=== PATIENT | female | born 1985 | race Caucasian/White ===

== ENCOUNTER 2018-09-20 17:06 | Emergency (ER) | payer OTHER, SELFPAY ==
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
[2018-09-20 18:09] LABS: #Eosinphils 0.1 thou/uL (0.0-0.7); #Lymphocytes 2.4 thou/uL (1.20-3.40); #Monocytes 0.6 thou/uL (0.11-0.59); #Neutrophils 4.1 thou/uL (1.40-6.50); %Basophils 0.1 % (0.0-1.0); %Eosinophils 1.2 % (0.0-10.0); %Monocytes 8.5 % (0.0-10.0); %Neutrophils 57.1 % (42.0-75.0); Hemoglobin 12.8 g/dL (12.0-16.0); Mean Corpuscular HGB CONC 33.2 g/dL (32.0-36.0); Mean Corpuscular Hemoglobin 31.9 pg (27.0-31.0); Mean Platelet Volume 7.9 fL (7.4-10.4); Platelet Count 307 thou/uL (130-400); RBC Distribution Width 11.4 % (11.5-14.5); Red Blood Cell (RBC) Count 4.02 mill/uL (4.20-5.40); White Blood Cell (WBC) Count 7.1 thou/uL (4.8-10.8)
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
[2018-09-20] MEDS ORDERED: Ondansetron PF 4 MG/2 ML Vial ONE (18:14)
[2018-09-20] MEDS ORDERED: Ketorolac Tromethamine 30 MG/ML VIAL ONE (18:14)
[2018-09-20 18:17] LABS: BHCG - Serum Negative (NEGATIVE); Pregs Control Background? CLEAR/WHITE (CLR/WHITE); Pregs Control Bar Appear? YES (CONTROL BAR)
[2018-09-20 18:30] LABS: ALT (SGPT) 7 U/L (8-55); AST (SGOT) 12 U/L (5-34); Albumin 4.1 g/dL (3.5-5.0); Alkaline Phosphatase 66 U/L (40-150); Anion Gap 13 mmol/L (10-20); BUN (Urea Nitrogen) 16 mg/dL (7.0-18.7); Bilirubin, Total 0.5 mg/dL (0.2-1.2); Calc. Creatinine Clearance 0 mL/min (70-130); Calcium 9.3 mg/dL (7.8-10.44); Carbon Dioxide 26 mmol/L (22-29); Chloride 104 mmol/L (98-107); Estimated GFR-MDRD 86; Globulin 3.4 g/dL (2.4-3.5); Glucose 77 mg/dL (70-105); Lipase 10 U/L (8-78); Potassium 4.1 mmol/L (3.5-5.1); Protein, Total 7.5 g/dL (6.0-8.3); Sodium 139 mmol/L (136-145)
== END 2018-09-20 18:40 | disposition home or self-care (01) ==
LOC: ERS 17:06
DX: S16.1XXA Strain of muscle, fascia and tendon at neck level, initial encounter (principal); S39.012A Strain of muscle, fascia and tendon of lower back, initial encounter; F41.9 Anxiety disorder, unspecified; F17.210 Nicotine dependence, cigarettes, uncomplicated; V43.52XA Car driver injured in collision with other type car in traffic accident, initial encounter
CPT/HCPCS: 36415; 71260; 72125; 74177; 80053; 83690; 84703; 85025; 96374; 96375; J1885; J2405

== ENCOUNTER 2019-09-27 01:30 | Inpatient (IN) | payer BC, OTHER, SELFPAY ==
[2019-09-27] MEDS ORDERED: Ondansetron PF 4 MG/2 ML Vial ONE ×2 (02:12→03:39)
[2019-09-27 02:34] LABS: #Monocytes 0.7 thou/uL (0.11-0.59); #Neutrophils 10.4 thou/uL (1.40-6.50); %Basophils 0.2 % (0.0-1.0); %Eosinophils 0.2 % (0.0-10.0); %Lymphocytes 8.2 % (21.0-51.0); %Monocytes 5.8 % (0.0-10.0); %Neutrophils 85.8 % (42.0-75.0); Hemoglobin 12.5 g/dL (12.0-16.0); Mean Corpuscular HGB CONC 31.8 g/dL (32.0-36.0); Mean Corpuscular Volume 97.2 fL (78.0-98.0); Mean Platelet Volume 7.3 fL (7.4-10.4); Platelet Count 313 thou/uL (130-400); RBC Distribution Width 11.3 % (11.5-14.5); Red Blood Cell (RBC) Count 4.05 mill/uL (4.20-5.40); White Blood Cell (WBC) Count 12.1 thou/uL (4.8-10.8)
[2019-09-27 02:41] LABS: BHCG - Serum Negative (NEGATIVE); Pregs Control Background? CLEAR/WHITE (CLR/WHITE); Pregs Control Bar Appear? YES (CONTROL BAR)
[2019-09-27 02:45] LABS: Bilirubin Negative (Negative); Blood, Urine 1+ (Negative); Clarity Turbid (Clear); Glucose, Urine (Dipstick) Normal (Negative); Leukocyte 250 Leu/uL (Negative); Nitrite Negative (Negative); Protein, Urine (Dipstick) 200 mg/dL (Neg-Trace); Urobilinogen Normal mg/dL (Less than 2); WBC/HPF Greater than 50 HPF (0-3)
[2019-09-27 02:47] LABS: Bacteria/HPF 1+ HPF (None Seen)
[2019-09-27 02:50] LABS: ALT (SGPT) 8 U/L (8-55); AST (SGOT) 16 U/L (5-34); Albumin 4.3 g/dL (3.5-5.0); Alkaline Phosphatase 71 U/L (40-110); Anion Gap 15 mmol/L (10-20); BUN (Urea Nitrogen) 23 mg/dL (7.0-18.7); Bilirubin, Total 0.4 mg/dL (0.2-1.2); Calc. Creatinine Clearance 0 mL/min (70-130); Calcium 9.5 mg/dL (7.8-10.44); Carbon Dioxide 26 mmol/L (22-29); Chloride 104 mmol/L (98-107); Estimated GFR-MDRD 25; Globulin 3.3 g/dL (2.4-3.5); Glucose 115 mg/dL (70-105); Lipase 8 U/L (8-78); Potassium 4.1 mmol/L (3.5-5.1); Protein, Total 7.6 g/dL (6.0-8.3); Sodium 141 mmol/L (136-145)
[2019-09-27] MEDS ORDERED: cefTRIAXone\\ROCEPHIN 2 GM in Sodium Chloride 0.9% 100 ML IVPB SCH (03:00)
[2019-09-27] MEDS ORDERED: cefTRIAXone\\ROCEPHIN 1 GM VIAL ONE (03:01)
[2019-09-27 04:36] VITALS: BMI 28.1
[2019-09-27] MEDS ORDERED: Ondansetron ODT 4 MG TAB SL PRN (04:55)
[2019-09-27] MEDS ORDERED: Ondansetron PF 4 MG/2 ML Vial IVP PRN ×2 (04:55→05:14)
[2019-09-27] MEDS ORDERED: Senokot S 8.6-50 MG TAB PO PRN (05:14)
[2019-09-27] MEDS ORDERED: Fioricet 325/50/40 mg Tablet PO PRN (05:36)
[2019-09-27] MEDS: Sodium Chloride 0.9% 1,000 ML IV SCH ×2 (05:58→15:52)
--- NOTE | 2019-09-27 06:20 | HP ---
CHIEF COMPLAINT: Nausea and vomiting. HISTORY OF PRESENT ILLNESS: The patient is a very pleasant 33-year-old female with a medical history of anxiety, who comes into the hospital with complaints of nausea and vomiting going on day. The patient stated that she woke up on Friday evening around 7:30, started having some lower back pain. She took some ibuprofen and took a bath and went to run an errand. While she was coming back home, got very nauseated and threw up a few times. After that, every few hours, she had 1 or 2 bouts of emesis. At this time, she drove herself into the ER for further evaluation. The patient denies any fevers or chills. She stated that she noticed her urine was cloudy and had an odor. However, she denied any dysuria. She stated that she noticed her urine being cloudy and odorous, it has not even been 24 hours. She states that she gets UTIs about twice a year, but nothing like this. The patient also has been taking some ibuprofen post wisdom tooth removal. She also noticed that since she has had her teeth pulled, she continues to have this headache that she never had before. PAST MEDICAL HISTORY: She has a history of anxiety. PAST SURGICAL HISTORY: She has had a , tubal ligation. She has had recently her wisdom teeth removed on the of this of 2019. She has also had fecal disimpaction after having her son. MEDICATIONS: She takes buspirone as needed. ALLERGIES: SHE IS ALLERGIC TO AZITHROMYCIN, SHE GETS UTI AND YEAST INFECTION. FAMILY HISTORY: Mother has nasopharyngeal carcinoma, she is currently in remission. Father has hypertension, hyperlipidemia. REVIEW OF SYSTEMS: All negative except the ones mentioned above in the HPI. LABORATORY DATA: WBCs of 12.1, hemoglobin of 12.5, hematocrit of 39.3, platelets of 313. Chemistry; sodium of 141, potassium of 4.1, BUN of 23, creatinine of 2.23. Her test is negative. Her lipase was 8. Her LFTs were normal. Urine indicated turbid with 250 leukocytes, she did have some squamous epithelial cells and greater than [address] scan was ordered and is pending. PHYSICAL EXAMINATION: VITAL SIGNS: Temperature 98.1, pulse 63, blood pressure 124/85, respirations 20, and oxygen saturation 100% on room air. GENERAL: She is awake, alert, and oriented x3. Does not appear in distress. CV: S1 and S2 present. No murmurs, rubs, or gallops. LUNGS: Clear to auscultation. No rhonchi or wheezes noted. ABDOMEN: Soft, mild pain upon palpation around her epigastric area and also on her right lower quadrant and suprapubic area. EXTREMITIES: No edema. Pedal pulses are present x2. NEUROVASCULAR: No focal deficits noted. SKIN: No cuts or lesions or bruises noted. ASSESSMENT AND PLAN: The patient is a very pleasant 33-year-old female, who presents to the hospital with complaints of nausea, vomiting, and abdominal pain. 1. Urinary tract infection. She does not have costovertebral tenderness. She states her pain is more lower, lower back pain. CT of abdomen and pelvis is pending. However, upon my review, did not see any stranding. However, we will start her on some Rocephin for now, give her some IV hydration, send her urine for culture, and continue to monitor. 2. Acute kidney injury. She has no issues with her creatinine. Her last creatinine back in 2019 was normal at 0.78. She has been taking a significant amount of NSAIDs. We will stop the NSAIDs. We will start her on some hydration and see if her creatinine improves. I do not see any obstruction either on the CAT scan. She states that she has had kidney stones in the past; however, they have never caused her to have any issues. 3. Mild leukocytosis. Again, this could be from her urinary tract infection. 4. Deep venous thrombosis prophylaxis. We will put the patient on some SCDs and subcu Lovenox. Job ID: [id number]
[2019-09-27] MEDS ORDERED: Enoxaparin Sodium 40 MG/0.4 ML SYRINGE SC SCH (09:00)
[2019-09-27] MEDS: Famotidine/PF 20 mg/2ml Vial SLOW IVP SCH (09:00)
--- NOTE | 2019-09-27 09:41 | CT ---
PRELIMINARY REPORT/[facility]/EMERGENCY AFTER HOURS PROCEDURE EXAM: CT Abdomen and Pelvis Without Intravenous Contrast CLINICAL HISTORY: PT REPORTS N/V AND A HEADACHE ONSET 2129. REPORTS 6 EPISODES OF VOMITING, BILATERAL FLANK PAIN TECHNIQUE: Axial computed tomography images of the abdomen and pelvis without intravenous contrast. CONTRAST: None. COMPARISON: CT\SR - CT ABDOMEN PELVIS W/CONTRAST - 06/22/2011 10:37 PM WIRE STRANDER FINDINGS: LUNG BASES: No basilar airspace consolidation or pleural effusion. LIVER: Unremarkable. GALLBLADDER AND BILE DUCTS: Unremarkable. No calcified stone. No ductal dilation. PANCREAS: Unremarkable. SPLEEN: Unremarkable. ADRENAL GLANDS: Unremarkable. KIDNEYS, URETERS, AND BLADDER: 3 mm nonobstructing stone lower pole of the left kidney. No obstructin g renal stone. No hydronephrosis. STOMACH AND BOWEL: The rectum is markedly distended with wall measuring up to 9 cm in transverse dime nsion with mural thickening. Large amount of stool within the sigmoid colon. The remainder of the col on is not significantly distended. APPENDIX: Clips adjacent to the cecum may represent a prior appendectomy. PERITONEUM: No free fluid. No free air. LYMPH NODES: No lymphadenopathy. REPRODUCTIVE: Uterus is deviated to the right by the distended sigmoid colon. VASCULATURE: No aortic aneurysm. ABDOMINAL WALL AND SOFT TISSUES: Small fat-containing umbilical hernia. BONES: No fracture or suspicious osseous abnormality. IMPRESSION: The rectum is markedly distended with wall measuring up to 9 cm in transverse dimension with mural th ickening. Large amount of stool within the sigmoid colon. The remainder of the colon is not signifi cantly distended. Findings suggest fecal impaction. Thickening of the rectal wall may represent pro ctitis, although there is no significant adjacent stranding within the fat. ELECTRONICALLY SIGNED BY: Sania Kline MD Sep 27, 2019 4:31:39 AM CDT FINAL REPORT EMERGENT AFTER HOURS CT ABDOMEN AND PELVIS WITHOUT CONTRAST: DATE: 09/27/2019. PROVIDED CLINICAL HISTORY: Bilateral flank pain and vomiting. FINDINGS: Comparison is made with the examination dated 09/20/2018. The visualized lung bases are free of significant opacity. The left kidney demonstrates a 2-3 mm nonobstructing inferior pole calculus. No additional urinary t ract calculi are evident. There is a suggestion of subtle bilateral perinephric fat stranding. The urinary bladder wall appears thickened and there is fat stranding about the urinary bladder. Several foci of bladder gas are demonstrated. There is no hydronephrosis or additional urinary tract calcul us apparent. The solid abdominal organs are suboptimally evaluated in the absence of IV contrast material but demo nstrate an otherwise unremarkable unenhanced CT appearance. There is no bowel dilatation from additional inflammatory fat stranding, free fluid, or free air appa rent. There is conspicuous rectal fecal retention with stranding of the perirectal fat. The osseous structures demonstrate no concerning lytic or blastic lesions. IMPRESSION: 1. Urinary bladder wall thickening with surrounding fat stranding suggests cystitis. Foci of bladde r gas may be related to catheterization versus gas-forming organism. 2. Possible subtle bilateral perinephric fat stranding. Pyelonephritis is not excluded. 3. A 3 mm nonobstructing inferior pole left renal calculus. 4. Conspicuous rectal fecal retention and findings suggesting possible stercoral proctitis. This report is in disagreement with the preliminary interpretation. POS: [facility]
--- NOTE | 2019-09-27 10:24 | PDOC.HOSPP ---
- Subjective Encounter Date: 09/27/19 Encounter Time: 07:00 Subjective: no abd pain or nausea has loss of appetite, wants bland diet - Objective Vital Signs & Weight: Vital Signs (12 hours) Temp Pulse Resp BP BP Pulse Ox 09/27/19 07:26 98.0 F 57 L 18 108/71 99 09/27/19 04:00 98.1 F 63 20 124/85 124/85 100 Weight Weight 180 lb Result Diagrams: 09/27/19 02:15 09/27/19 02:15 Hospitalist ROS - Medication Medications: Active Medications Generic Name Dose Route Start Last Admin Trade Name Freq PRN Reason Stop Dose Admin Enoxaparin Sodium 40 mg 09/27/19 09:00 09/27/19 09:00 Lovenox SC 40 mg 0900 DEBI Administration Famotidine 20 mg 09/27/19 09:00 09/27/19 09:00 Pepcid SLOW IVP 20 mg 0900 DEBI Administration Sodium Chloride 1,000 mls @ 100 mls/hr 09/27/19 05:30 09/27/19 05:58 Normal Saline 0.9% IV 1,000 mls .Q10H DEBI Administration Senna/Docusate Sodium 2 tab 09/27/19 05:14 09/27/19 05:59 Senokot S PO 2 tab BID PRN Administration Constipation - Exam General Appearance: awake alert Eye: PERRL, anicteric sclera ENT: no oropharyngeal lesions, dry oral mucosa Neck: supple, no JVD Heart: RRR, no murmur Respiratory: no wheezes, no rales, no ronchi Gastrointestinal: soft, non-tender, non-distended, normal bowel sounds, no guarding, no rigidity Extremities: no cyanosis, no edema Neurological: cranial nerve grossly intact, no focal deficits Psychiatric: normal affect, A&O x 3 Hosp A/P (1) Pyelonephritis Code(s): N12 - TUBULO-INTERSTITIAL NEPHRITIS, NOT SPCF ACUTE OR CHRONIC Status: Acute (2) Severe dehydration Code(s): E86.0 - DEHYDRATION Status: Acute (3) NAFISA (acute kidney injury) Code(s): N17.9 - ACUTE KIDNEY FAILURE, UNSPECIFIED Status: Acute (4) Intractable nausea and vomiting Code(s): R11.2 - NAUSEA WITH VOMITING, UNSPECIFIED Status: Acute (5) Anxiety disorder Code(s): F41.9 - ANXIETY DISORDER, UNSPECIFIED Status: Chronic Qualifiers: Anxiety disorder type: generalized anxiety disorder Qualified Code(s): F41.1 - Generalized anxiety disorder - Plan is on ceftriaxone, iv hydration labs in am to ambulate as tolerated bowel regimen for constipation will switch to inpatient status in am if she does not respond well to current treatment.
[2019-09-27] MEDS ORDERED: Bisacodyl 10 MG SUPP PR PRN (10:26)
[2019-09-27] MEDS ORDERED: Promethazine HCl 25 MG/ML VIAL IM/IV PRN (13:43)
[2019-09-27] MEDS ORDERED: Promethazine HCl 25 MG in Sodium Chloride 0.9% 50 ML IVPB SCH (14:30)
[2019-09-27] MEDS: Acetaminophen 325 MG TAB PO PRN (15:55)
[2019-09-27] MEDS: Senokot S 8.6-50 MG TAB PO SCH (19:50)
[2019-09-28] MEDS: cefTRIAXone\\ROCEPHIN 2 GM in Sodium Chloride 0.9% 100 ML IVPB SCH (04:00)
[2019-09-28 05:27] LABS: #Lymphocytes 1.7 thou/uL (1.20-3.40); #Monocytes 0.9 thou/uL (0.11-0.59); %Basophils 0.1 % (0.0-1.0); %Eosinophils 0.3 % (0.0-10.0); %Lymphocytes 19.4 % (21.0-51.0); %Monocytes 10.6 % (0.0-10.0); %Neutrophils 69.6 % (42.0-75.0); Hemoglobin 10.5 g/dL (12.0-16.0); Mean Corpuscular HGB CONC 32.2 g/dL (32.0-36.0); Mean Corpuscular Hemoglobin 31.1 pg (27.0-31.0); Mean Corpuscular Volume 96.5 fL (78.0-98.0); Mean Platelet Volume 7.4 fL (7.4-10.4); Platelet Count 209 thou/uL (130-400); RBC Distribution Width 11.4 % (11.5-14.5); Red Blood Cell (RBC) Count 3.38 mill/uL (4.20-5.40); White Blood Cell (WBC) Count 8.6 thou/uL (4.8-10.8)
[2019-09-28 05:58] LABS: Anion Gap 14 mmol/L (10-20); BUN (Urea Nitrogen) 26 mg/dL (7.0-18.7); Calc. Creatinine Clearance 29 mL/min (70-130); Calcium 8.1 mg/dL (7.8-10.44); Carbon Dioxide 21 mmol/L (22-29); Chloride 109 mmol/L (98-107); Estimated GFR-MDRD 15; Glucose 83 mg/dL (70-105); Sodium 140 mmol/L (136-145)
--- NOTE | 2019-09-28 08:14 | RAD ---
PORTABLE CHEST: DATE: 09/28/2019. PROVIDED CLINICAL HISTORY: Abdominal pain. FINDINGS: Comparison 05/22/2010. Cardiac and mediastinal silhouette is within normal limits. No focal consoli dation, pleural fluid, or pneumothorax apparent. IMPRESSION: No evidence for an acute cardiopulmonary process. POS: [facility]
[2019-09-28] MEDS: Polyethylene Glycol 3350 17 GM Packet PO SCH (09:26)
[2019-09-28] MEDS: Famotidine/PF 20 mg/2ml Vial SLOW IVP SCH (09:27)
[2019-09-28] MEDS: Dextrose 5% in Water 1,000 ML IV SCH ×3 (09:30→23:10)
[2019-09-28] MEDS: Senokot S 8.6-50 MG TAB PO SCH ×2 (09:32→20:13)
--- NOTE | 2019-09-28 11:44 | PDOC.HOSPP ---
- Subjective Encounter Date: 09/28/19 Encounter Time: 09:20 Subjective: no cough or sob no abd pain or nausea now ate her breakfast this am says she is feeling better from last night - Objective Vital Signs & Weight: Vital Signs (12 hours) Temp Pulse Resp BP Pulse Ox 09/28/19 10:57 99.2 F 50 L 14 109/71 96 09/28/19 08:24 97 09/28/19 04:00 98.9 F 49 L 20 116/77 95 Weight Admit Weight 180 lb Weight 180 lb I&O: 09/27/19 09/28/19 09/29/19 06:59 06:59 06:59 Intake Total 1198 Balance 1198 Result Diagrams: 09/28/19 05:08 09/28/19 05:08 Hospitalist ROS - Medication Medications: Active Medications Generic Name Dose Route Start Last Admin Trade Name Freq PRN Reason Stop Dose Admin Acetaminophen 650 mg 09/27/19 05:14 09/27/19 15:55 Tylenol PO 650 mg Q4H PRN Administration Headache/Fever/Mild Pain (1-3) Famotidine 20 mg 09/27/19 09:00 09/28/19 09:27 Pepcid SLOW IVP 20 mg 0900 DEBI Administration Ceftriaxone Sodium 2 gm/ 100 mls @ 200 mls/hr 09/28/19 03:00 09/28/19 04:00 Sodium Chloride IVPB 100 mls Q24HR DEBI Administration Dextrose/Water 1,000 mls @ 100 mls/hr 09/28/19 07:15 09/28/19 09:30 D5w IV 1,000 mls .Q10H DEBI Administration Ondansetron HCl 4 mg 09/27/19 05:14 09/27/19 10:53 Zofran IVP 4 mg Q6H PRN Administration Nausea/Vomiting Polyethylene Glycol 17 gm 09/28/19 09:00 09/28/19 09:26 Miralax PO 17 gm DAILY DEBI Administration Promethazine HCl 25 mg 09/27/19 13:43 09/27/19 19:51 Phenergan IM/IV 25 mg Q6H PRN Administration Nausea/Vomiting Senna/Docusate Sodium 2 tab 09/27/19 05:14 09/27/19 05:59 Senokot S PO 2 tab BID PRN Administration Constipation Senna/Docusate Sodium 1 tab 09/27/19 21:00 09/28/19 09:32 Senokot S PO Not Given BID DEBI Sodium Chloride 10 ml 09/28/19 09:00 09/28/19 09:33 Flush - Normal Saline IVF Not Given Q12HR DEBI - Exam General Appearance: awake alert Eye: PERRL, anicteric sclera ENT: no oropharyngeal lesions, moist mucosa Neck: supple, no JVD Heart: RRR, no murmur Respiratory: no wheezes, no rales Gastrointestinal: soft, non-tender, non-distended, normal bowel sounds Extremities: no cyanosis, no edema Neurological: cranial nerve grossly intact, no focal deficits Psychiatric: normal affect, A&O x 3 Hosp A/P (1) Pyelonephritis Code(s): N12 - TUBULO-INTERSTITIAL NEPHRITIS, NOT SPCF ACUTE OR CHRONIC Status: Acute (2) Severe dehydration Code(s): E86.0 - DEHYDRATION Status: Acute (3) NAFISA (acute kidney injury) Code(s): N17.9 - ACUTE KIDNEY FAILURE, UNSPECIFIED Status: Acute (4) Intractable nausea and vomiting Code(s): R11.2 - NAUSEA WITH VOMITING, UNSPECIFIED Status: Resolved (5) Anxiety disorder Code(s): F41.9 - ANXIETY DISORDER, UNSPECIFIED Status: Chronic Qualifiers: Anxiety disorder type: generalized anxiety disorder Qualified Code(s): F41.1 - Generalized anxiety disorder - Plan is on ceftriaxone, iv hydration labs in am to ambulate as tolerated bowel regimen for constipation will switch to inpatient status as her creatinine has gotten worse, likely has [facility] nephrology consultation
--- NOTE | 2019-09-28 18:16 | CON ---
DATE OF CONSULTATION: CONSULTING PHYSICIAN: Constantin Patel MD REQUESTING PHYSICIAN: Amarilis Alberts MD REASON FOR CONSULTATION: Acute kidney injury. IMPRESSION: 1. Acute kidney injury, this is likely in the context of cytokine-mediated injury compounded by prerenal due to nausea and vomiting. 2. Obstructive uropathy ruled out as per imaging studies. PLAN: 1. IV rehydration. 2. Antibiotics, especially narrow down basal de-sensitivity. 3. Renally dose all medications. 4. Hopefully the renal function will improve rapidly. If this does not occur, we will begin to look into some other potential inflammatory damage of the kidney. HISTORY OF PRESENT ILLNESS: History is that of a 33-year-old female patient, who presented here with nausea and vomiting with cloudy urine with preliminary studies suggestive of urinary tract infection, activities by imaging studies of perinephric stranding and evidence of cystitis and urinalysis. The patient is currently on antibiotics. Baseline creatinine of 0.78 as of about a year ago. On presentation here noted with 2.23 and has progressively gone up to 3.51 caused the need for renal consultation. PAST MEDICAL HISTORY: Significant for anxiety and a past history of urinary tract infection. MEDICATIONS: As documented on [facility]. ALLERGIES: TO ZITHROMAX. FAMILY HISTORY: No family history of kidney disease. SOCIAL HISTORY: Denies alcohol, occasional tobacco use. REVIEW OF SYSTEMS: As documented in the body of the history. All other systems were reviewed and found not to be significantly related to present illness. PHYSICAL EXAMINATION: GENERAL: The patient was found not to be in any obvious distress. VITAL SIGNS: Noted with the following vital signs, afebrile, temperature 98.7, pulse 50, respiratory rate of 16, and O2 saturation of 96% with blood pressure 113/74. HEENT: Unremarkable. CARDIOVASCULAR SYSTEM: First and second heart sounds were heard. RESPIRATORY SYSTEM: Clear to auscultation. DIGESTIVE SYSTEM: Revealed a benign abdomen with positive bowel sounds. EXTREMITIES: No peripheral edema. SKIN: No new gross rash. LYMPHATICS: No peripheral lymphadenopathy. SUMMARY: A 33-year-old female patient, who presented here with evidence of urinary tract infection, now experiencing worsening kidney injury in the context of possible cytokine-mediated injury compounded by prerenal azotemia. Thank you for this consultation. We will follow with you. Job ID: [id number]
[2019-09-28] MEDS: Enoxaparin Sodium 30 MG/0.3 ML SYRINGE SC SCH (20:15)
[2019-09-29] MEDS: cefTRIAXone\\ROCEPHIN 2 GM in Sodium Chloride 0.9% 100 ML IVPB SCH (02:53)
[2019-09-29] MEDS: Sodium Chloride 0.9% 1,000 ML IV SCH (07:20)
[2019-09-29 07:44] LABS: #Eosinphils 0.1 thou/uL (0.0-0.7); #Lymphocytes 1.6 thou/uL (1.20-3.40); #Monocytes 0.7 thou/uL (0.11-0.59); #Neutrophils 4.5 thou/uL (1.40-6.50); %Basophils 0.3 % (0.0-1.0); %Eosinophils 0.8 % (0.0-10.0); %Lymphocytes 23.3 % (21.0-51.0); %Monocytes 10.2 % (0.0-10.0); %Neutrophils 65.4 % (42.0-75.0); Hemoglobin 10.7 g/dL (12.0-16.0); Mean Corpuscular HGB CONC 32.4 g/dL (32.0-36.0); Mean Corpuscular Hemoglobin 31.5 pg (27.0-31.0); Mean Corpuscular Volume 97.2 fL (78.0-98.0); Mean Platelet Volume 8.1 fL (7.4-10.4); Platelet Count 215 thou/uL (130-400); RBC Distribution Width 11.4 % (11.5-14.5); Red Blood Cell (RBC) Count 3.41 mill/uL (4.20-5.40); White Blood Cell (WBC) Count 6.9 thou/uL (4.8-10.8)
[2019-09-29 08:05] LABS: Anion Gap 13 mmol/L (10-20); BUN (Urea Nitrogen) 20 mg/dL (7.0-18.7); BUN/Creatinine Ratio 8.73; Calc. Creatinine Clearance 45 mL/min (70-130); Calcium 8.2 mg/dL (7.8-10.44); Carbon Dioxide 22 mmol/L (22-29); Chloride 107 mmol/L (98-107); Estimated GFR-MDRD 25; Glucose 99 mg/dL (70-105); Phosphorus 3.9 mg/dL (2.3-4.7); Potassium 3.7 mmol/L (3.5-5.1); Sodium 138 mmol/L (136-145)
[2019-09-29] MEDS: Famotidine/PF 20 mg/2ml Vial SLOW IVP SCH (08:15)
[2019-09-29] MEDS: Polyethylene Glycol 3350 17 GM Packet PO SCH (08:15)
[2019-09-29] MEDS: Senokot S 8.6-50 MG TAB PO SCH ×2 (08:15→21:45)
[2019-09-29] MEDS: Dextrose 5% in Water 1,000 ML IV SCH ×2 (12:20→21:45)
--- NOTE | 2019-09-29 12:33 | PDOC.HOSPP ---
- Subjective Encounter Date: 09/29/19 Encounter Time: 08:00 Subjective: no abd pain or nausea feels better is tolerating oral diet - Objective Vital Signs & Weight: Vital Signs (12 hours) Temp Pulse Resp BP BP Pulse Ox 09/29/19 08:00 98.4 F 61 16 96/62 98 09/29/19 04:00 98.6 F 66 20 127/74 98 Weight Admit Weight 180 lb Weight 180 lb I&O: 09/28/19 09/29/19 09/30/19 06:59 06:59 06:59 Intake Total 1198 Balance 1198 Result Diagrams: 09/29/19 07:20 09/29/19 07:21 Hospitalist ROS - Medication Medications: Active Medications Generic Name Dose Route Start Last Admin Trade Name Freq PRN Reason Stop Dose Admin Acetaminophen 650 mg 09/27/19 05:14 09/27/19 15:55 Tylenol PO 650 mg Q4H PRN Administration Headache/Fever/Mild Pain (1-3) Enoxaparin Sodium 30 mg 09/28/19 21:00 09/28/19 20:15 Lovenox SC Not Given 2100 DEBI Famotidine 20 mg 09/27/19 09:00 09/29/19 08:15 Pepcid SLOW IVP 20 mg 0900 DEBI Administration Ceftriaxone Sodium 2 gm/ 100 mls @ 200 mls/hr 09/28/19 03:00 09/29/19 02:53 Sodium Chloride IVPB 100 mls Q24HR DEBI Administration Dextrose/Water 1,000 mls @ 100 mls/hr 09/28/19 07:15 09/28/19 23:10 D5w IV 1,000 mls .Q10H DEBI Administration Ondansetron HCl 4 mg 09/27/19 05:14 09/27/19 10:53 Zofran IVP 4 mg Q6H PRN Administration Nausea/Vomiting Polyethylene Glycol 17 gm 09/28/19 09:00 09/29/19 08:15 Miralax PO 17 gm DAILY DEBI Administration Promethazine HCl 25 mg 09/27/19 13:43 09/27/19 19:51 Phenergan IM/IV 25 mg Q6H PRN Administration Nausea/Vomiting Senna/Docusate Sodium 2 tab 09/27/19 05:14 09/27/19 05:59 Senokot S PO 2 tab BID PRN Administration Constipation Senna/Docusate Sodium 1 tab 09/27/19 21:00 09/29/19 08:15 Senokot S PO Not Given BID DEBI Sodium Chloride 10 ml 09/28/19 09:00 09/29/19 08:15 Flush - Normal Saline IVF Not Given Q12HR DEBI - Exam General Appearance: awake alert Eye: PERRL, anicteric sclera ENT: no oropharyngeal lesions, moist mucosa Neck: supple, no JVD Heart: RRR, no murmur Respiratory: no wheezes, no rales Gastrointestinal: soft, non-tender, non-distended, normal bowel sounds Extremities: no cyanosis, no edema Neurological: cranial nerve grossly intact, no focal deficits Psychiatric: normal affect, A&O x 3 Hosp A/P (1) Pyelonephritis Code(s): N12 - TUBULO-INTERSTITIAL NEPHRITIS, NOT SPCF ACUTE OR CHRONIC Status: Acute (2) Severe dehydration Code(s): E86.0 - DEHYDRATION Status: Resolved (3) NAFISA (acute kidney injury) Code(s): N17.9 - ACUTE KIDNEY FAILURE, UNSPECIFIED Status: Acute (4) Intractable nausea and vomiting Code(s): R11.2 - NAUSEA WITH VOMITING, UNSPECIFIED Status: Resolved (5) Anxiety disorder Code(s): F41.9 - ANXIETY DISORDER, UNSPECIFIED Status: Chronic Qualifiers: Anxiety disorder type: generalized anxiety disorder Qualified Code(s): F41.1 - Generalized anxiety disorder - Plan is on ceftriaxone, iv hydration labs in am to ambulate as tolerated bowel regimen for constipation hemostable creatinine starting to trend down urine cs is contaminated
[2019-09-29 19:52] VITALS: TEMP 98.3
[2019-09-29] MEDS: Enoxaparin Sodium 30 MG/0.3 ML SYRINGE SC SCH (21:45)
[2019-09-30] MEDS: cefTRIAXone\\ROCEPHIN 2 GM in Sodium Chloride 0.9% 100 ML IVPB SCH (03:33)
[2019-09-30 06:33] LABS: Albumin 3.1 g/dL (3.5-5.0); Anion Gap 12 mmol/L (10-20); BUN (Urea Nitrogen) 13 mg/dL (7.0-18.7); BUN/Creatinine Ratio 9.15; Calc. Creatinine Clearance 73 mL/min (70-130); Calcium 8.4 mg/dL (7.8-10.44); Carbon Dioxide 26 mmol/L (22-29); Chloride 108 mmol/L (98-107); Estimated GFR-MDRD 43; Glucose 100 mg/dL (70-105); Phosphorus 4.5 mg/dL (2.3-4.7); Potassium 3.6 mmol/L (3.5-5.1); Sodium 142 mmol/L (136-145)
[2019-09-30] MEDS: Famotidine/PF 20 mg/2ml Vial SLOW IVP SCH (07:54)
[2019-09-30] MEDS: Dextrose 5% in Water 1,000 ML IV SCH (07:55)
[2019-09-30] MEDS: Polyethylene Glycol 3350 17 GM Packet PO SCH (07:55)
[2019-09-30] MEDS: Senokot S 8.6-50 MG TAB PO SCH (07:55)
[2019-09-30] MEDS: Acetaminophen 325 MG TAB PO PRN (08:23)
[2019-09-30 11:22] VITALS: BP 115/71
--- NOTE | 2019-09-30 17:05 | DIS ---
DATE OF ADMISSION: 09/27/2019 DATE OF DISCHARGE: 09/30/2019 DISCHARGE DISPOSITION: Home. PRIMARY DISCHARGE DIAGNOSES: Pyelonephritis/urinary tract infection with severe dehydration and acute kidney injury, intractable nausea and vomiting secondary to above, anxiety disorder. PROCEDURES DONE DURING HOSPITALIZATION: The patient had CT of the abdomen and pelvis stone protocol done, which showed findings suggestive of cystitis along with bilateral perinephric fat stranding suggestive of pyelonephritis. There was a stool present in the rectal vault with distention and possible stercoral proctitis. Urine culture was contaminated. White count of 12 on the day of admission with discharge numbers of 6.9, H and H of 10 and 33, platelet count 215, MCV is 97. BUN and creatinine went up to 26 and 3.5 on the , discharge BUN and creatinine are 13 and 1.4. Serum bicarb is 26 on the day of discharge. Serum test negative. Liver enzymes were within normal limits. UA is positive for UTI. DISCHARGE MEDICATIONS: Ciprofloxacin 500 mg p.o. twice daily for 1 week. INPATIENT CONSULT: Dr. Killian for Nephrology. DISCHARGE PLAN: The patient to follow up with Dr. Rosie Amaya in 1 week. She will also need a basic metabolic panel to be done on 10/06/2019. The results will be faxed to her primary care physician's office. BRIEF COURSE DURING HOSPITALIZATION: The patient initially got admitted on the with complaints of intractable nausea, vomiting, and nonspecific abdominal pain. She had an initial CAT scan done, which showed findings suggestive of pyelonephritis with constipation. Her urinalysis was positive for UTI. She had acute kidney injury with normal creatinine in the past. She had severe dehydration and was gently hydrated during her stay here. Her creatinine was 2.2 on admission and went up to 3.5 the next morning. Hence, a Nephrology consultation was requested. Ms. Akins continued on IV hydration and started to tolerate oral diet. From last 48 hours, she has been eating and ambulating on floor. Her renal function returned to baseline quickly, likely this is prerenal and she was placed on ciprofloxacin full dose after discussing with . Her urine culture was contaminated. She needs to continue 1 week of antibiotics and have a metabolic panel done on the . The results to be faxed to her primary care physician for followup. She is otherwise hemodynamically stable and is wanting to go home today. Please note, I have seen and examined the patient on the day of discharge. Job ID: [id number] MTDD
--- NOTE | 2019-09-30 17:17 | PRG ---
DATE OF SERVICE: 09/30/2019 OBJECTIVE: VITAL SIGNS: The patient was noted with the following vital signs; afebrile, temperature 98.3, pulse 89, respiratory rate 16, O2 saturation on room air 100%, blood pressure 115/71. HEENT: Unremarkable. CARDIOVASCULAR: First and second heart sounds were heard. LYMPHATICS: No peripheral lymphadenopathy. IMPRESSION: 1. Urinary tract infection, on treatment. 2. Acute on chronic kidney disease, grossly resolved. PLAN: 1. From the renal standpoint, the patient is due for discharge. 2. Further management to be dependent on the clinical course. Job ID: [id number]
--- NOTE | 2019-09-30 17:27 | PRG ---
DATE OF SERVICE: 09/30/2019 OBJECTIVE: VITAL SIGNS: The patient noted with the following vital signs; afebrile, temperature 98.2, pulse 50, respiratory rate of 14, O2 saturation 96%, and blood pressure 119/71. HEENT: Unremarkable. CARDIOVASCULAR: First and second heart sounds were heard.. RESPIRATOR: Clear to auscultation. DIGESTIVE SYSTEM: Revealed a benign abdomen. EXTREMITIES: No peripheral edema. SKIN: No new gross rash. LYMPHATICS: No peripheral lymphadenopathy. IMPRESSION: 1. Urinary tract infection. 2. Fiems-uc-pbhacty kidney disease. PLAN: Continue current treatment. The patient's renal function is further management to be dependent on the clinical course. Job ID: [id number]
--- NOTE | 2019-10-01 08:42 | PQF ---
TL KIMBROUGH VINAYA KUMAR MD [id number] CLINICAL DOCUMENTATION CLARIFICATION FORM: POST DISCHARGE Addendum to original discharge summary date: ____ Late entry note date: __ DATE:10/01/2019 ATTN:Gina Panchal Please exercise your independent, professional judgment in responding to the clarification form. Clinical indicators are provided on the bottom of this form for your review In your clinical opinion based on clinical findings below, can you please clarify the clinical significance of Cystitis on Radiology report if: Please check appropriate box(s): [ x ] Associated Diagnosis: Cystitis [ ] Abnormal radiological findings only [ ] Other diagnosis [ ] Unable to determine In addition, please specify: Present on Admission (POA): [ x ] Yes [ ] No [ ] Unable to determine For continuity of documentation, please document condition throughout progress notes and discharge summary. Thank You. CLINICAL INDICATORS - SIGNS / SYMPTOMS / LABS Laboratory 09/26 Urinalysis Turbid A, pH6.0, gravity 1.011, Protein 200. Bacteria 1+ Urine culture 09/26 Normal urogenital norma present Vital signs 09/26 BP 118/75, Pulse 70, Resp 16, Temp 98.7 Abdomen/Pelvis CT 09/26 Impression: Urinary bladder wall thickening with surrounding fat strading suggests cystitis H&P p1 09/26 Dr Alberts She states the she gets UTIs about twice a year H&P p2 09/26 Mild leukocytosis RISK FACTORS H&P p1 09/26 hx of UTI H&P p2 09/26 Acute kidney injury Discharge summary p1 09/29 Pyelonephritis/ Urinary tract infection Discharge summary p1 09/29 Severe dehydration TREATMENTS: AUG 03 IVF Ceftriaxone 2gm AUG 03 IVF NS 1L Urine Culture 09/26 Abdomen/Pelvis CT 09/26 Nephrology consult 09/27 Espinoza Mehtaty (This form is maintained as a part of the permanent medical record) 2014 [employer] All Rights Reserved [email or web address]
--- NOTE | 2019-10-04 05:21 | PQF ---
TL KIMBROUGH VINAYA KUMAR MD [id number] CLINICAL DOCUMENTATION CLARIFICATION FORM: POST DISCHARGE Addendum to original discharge summary date: ____ Late entry note date: __ DATE:10/03/2019 ATTN:Gina Panchal Please exercise your independent, professional judgment in responding to the clarification form. Clinical indicators are provided on the bottom of this form for your review Please check appropriate box(s) to clarify if the following diagnosis has been ruled in or ruled out: ATN [ ] Ruled in diagnosis [ ] Continue to treat [ ] Resolved [ ] Ruled out diagnosis [ ] Cannot rule out diagnosis [x ] Other diagnosis :pre-renal zandra due to severe dehydration secondary to intractable nausea/vomiting and poor oral intake [ ] Unable to determine In addition, please specify: Present on Admission (POA): [ x] Yes [ ] No [ ] Unable to determine For continuity of documentation, please document condition throughout progress notes and discharge summary. Thank You. CLINICAL INDICATORS - SIGNS / SYMPTOMS / LABS Laboratory 09/26 BUN 23, Creatinine 2.23, GFR 25 Vital signs 09/26 BP 118/75, Pulse 70, Resp 16, Temp 98.7 Abdomen/Pelvis CT 09/26 Impression: Urinary bladder wall thickening with surrounding fat strading suggests cystitis H&P p1 09/26 Dr Alberts She states the she gets UTIs about twice a year H&P p2 09/26 Acute kidney injury, her last creatinine back in 2018 was normal at 0.78. Taking significant amount of NSAIDS Hospitalist PN p4 09/27 her creatinine has gotten worse, likely has ATN H&P p1 09/26 Dr Alberts CC: Nausea and vomiting RISK FACTORS H&P p1 09/26 hx of UTI H&P p2 09/26 hx of kidney stones Discharge summary p1 09/29 Pyelonephritis/ Urinary tract infection Discharge summary p1 09/29 Severe dehydration ED Notes p1 09/26 - Smoker H& P p2 09/26 emt intermediate use of NSAID TREATMENTS MAR 09/26 IVF Sodium Chloride 1L Abdomen/Pelvis CT 09/26 Nephrology consult 09/27 Constantin Mehta H&P p2 09/26 Stop NSIAD Consult p1 09/27 Renally dose all medications (This form is maintained as a part of the permanent medical record) 2014 [employer] All Rights Reserved [email or web address]
== END 2019-09-30 12:23 | disposition home or self-care (01) | DRG 690 ==
LOC: ERS 01:30 → OBSVTOIN 03:31 → T4-A 03:31
PROVIDERS: ADMIT Internal Medicine; ATTEND Internal Medicine
DX: N12 Tubulo-interstitial nephritis, not specified as acute or chronic (principal); N17.9 Acute kidney failure, unspecified; F41.9 Anxiety disorder, unspecified; E86.0 Dehydration; F41.1 Generalized anxiety disorder; K59.00 Constipation, unspecified; N18.9 Chronic kidney disease, unspecified; N30.90 Cystitis, unspecified without hematuria; Z87.440 Personal history of urinary (tract) infections; Z79.899 Other long term (current) drug therapy; Z88.1 Allergy status to other antibiotic agents
CPT/HCPCS: 36415; 71045; 74176; 80048; 80053; 80069; 81003; 81015; 83690; 84703; 85025; 87086; 96361; 96374; 96375; 96376; J0696; J1650; J2405; J2550; J3490; S0028